=== PATIENT | male | born 1950 | race Caucasian/White ===

== ENCOUNTER 2017-04-15 17:50 | Emergency (ER) | payer MEDICARE, OTHER ==
[~2017-04-15] VITALS: Ht 175.3 cm; Wt 120.2 kg
--- NOTE | 2017-04-15 17:59 | Emergency Room Report ---
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 Clinical Suspician of Infection? Mental Status: Sepsis Risk: Have you (or family members/close friends) recently traveled outside the [place]? If Yes, where/when: Have you had exposure to infectious disease within the past month? TB? Other? Specify: Source patient, RN notes reviewed Exam Limitations no limitations Comment Pt comes to the ED with a cut on the volar aspect of his left 5th finger and he does not remember how it happened He is allergic to tetanus and can not take the shot Cardiac Chest Pain Chest pain indicative of cardiac No ALLERGIES Coded Allergies: tetracycline (04/15/17) History Medical History Surgical Hx Previous Surgery?Y NERVE SURGERY Review of Systems All Other Systems Reviewed and Negative Constitutional see HPI Skin see HPI Physical Exam Vital Signs Vital Signs Date Time Temp Pulse Resp B/P Pulse O2 O2 Flow FiO2 Ox Delivery Rate 04/15 1756 98.4 90 16 162/97 95 General Appearance normal appearance, WD/WN, no apparent distress Respiratory Status No: respiratory distress. Cardiovascular normal exam, regular rate/rhythm Neurologic alert, clip and hanger attacher II-XII nml as tested, normal exam Skin Laceration on the left 5th finger distal phalanx that is a flap, is irregular and about 3 cm in length Medical Decision Making LABS/Meds/Orders Pt receiving controlled substance in ED? No Results/Orders Current Medication Orders Sig/Batsheva Start time Last Medication Dose Route Stop Time Status Admin Diphtheria/Pertussis/ 0.5 ML ONCE ONE 04/15 1845 DC 04/15 Tetanus Vacc IM 04/15 1846 190 Diphtheria/Pertussis/ 0 .STK-MED ONE 04/15 1844 DC Tetanus Vacc IM Lidocaine HCl 0 .STK-MED ONE 04/15 1830 DC .ROUTE Bacitracin 0 .STK-MED ONE 04/15 1829 DC TP Procedures Laceration/Wound Repair Laceration/Wound Repair Risks/benefits discussed with pt/guardian? No Tetanus status Allergic to tetanus Wound Location finger(s) Wound Length (cm) 3 Wound's Depth, Shape sucutaneous tissue Wound Explored clean Risk of retained FB explained to pt/guardian? No Irrigated w/ Saline (ccs) 25 Wound Prep Hibiclens, Saline Anesthesia 1% Lidocaine Volume Anesthetic (ccs) 3 Wound Debrided none Wound Repaired With sutures Suture Size/Type 5:0, Ethilon Layer Closure No Total Number Sutures 7 Sterile Dressing Applied Yes Splint Applied No Departure Departure Time of Disposition 1906 Disposition DC Home or Self Care(routine) Clinical Impression Primary Impression: Laceration of left hand without complication, including fingers Qualifiers: Encounter type: initial encounter Qualified Code: S61.412A - Laceration without foreign body of left hand, initial encounter Condition STABLE Patient Instructions DI for Laceration Repair, Laceration Repair Additional Instructions elevate higher than heart for 24 hours. Change dressing daily and keep stitches dry for 2 days. Followup in 9 to 10 days to remove stitches. Discharge Counseling Counseled pt/family regarding diagnosis, medications/RX, home care, follow up needs Prescriptions Current Visit Scripts Cephalexin (Keflex 500MG) 500 MG PO QID #40 CAP MUPIROCIN 2% (Bactroban Oint) 1 GM TP DAILY #1 TUBE ED Critical Care Critical Care No If Critical Care minutes are documented, the time involved in the performance of seperately reportable procedures was not counted toward critical care time documented. I directly delivered medical care to this critically ill and/or injured patient. Timely evaluation and treatment was necessary to address the significant organ system(s) dysfunction present in this patient. at 1911
[2017-04-15] MEDS ORDERED: KEFLEX500 M1 PO (19:10)
[2017-04-15] MEDS ORDERED: BACTROBAN2% TP (19:11)
[2017-04-15 19:25] VITALS: BP 154/88
== END 2017-04-15 19:26 | disposition home or self-care (01) ==
LOC: ER 17:50
PROC: 0HQGXZZ Repair Left Hand Skin, External Approach (ICD-10-PCS; principal; 2017-04-15)
DX: S61.412A Laceration without foreign body of left hand, initial encounter (principal); Z23 Encounter for immunization; W45.8XXA Other foreign body or object entering through skin, initial encounter; Y92.009 Unspecified place in unspecified non-institutional (private) residence as the place of occurrence of the external cause

== ENCOUNTER 2017-04-24 13:25 | Emergency (ER) | payer MEDICARE, OTHER ==
[~2017-04-24 13:25] MED LIST: BACTROBAN2% TP; KEFLEX500 M1 PO
--- OUTSIDE RECORDS SUMMARY | 2017-04-24 13:28 | External Medical Summary Rpt | CCD ---
Demographics Preferred Language Citizen Of [place] Marital Status Unknown Congregational Affiliation Unknown Race Unknown Ethnic Group Unknown Author Author , LANETTE GAMA Address Unknown Phone [email or web address] Immunization Name Date Rout CVX Reac Dose Comm Prov Is Faci e tion ent ider Refu lity Give sed n Hep 11-2 43 999 Hist H109 No H109 B, 9-20 oric adul 01 al t Info rmat ion - Sour ce Unsp ecif ied Hep 05-0 43 999 Hist H109 No H109 B, 4-20 oric adul 01 al t Info rmat ion - Sour ce Unsp ecif ied Hep 03-1 43 999 Hist H109 No H109 B, 5-20 oric adul 01 al t Info rmat ion - Sour ce Unsp ecif ied
--- OUTSIDE RECORDS SUMMARY | 2017-04-24 13:28 | External Medical Summary Rpt | CCD ---
Author Author [employer] Organization [employer] Address Unknown Phone Unavailable Purpose Continuity of Care Document - through 2016
--- OUTSIDE RECORDS SUMMARY | 2017-04-24 13:28 | External Medical Summary Rpt | CCD ---
Author Author , LANETTE GAMA Address Unknown Phone [email or web address] Purpose Continuity of Care Document - through 2016 Problems Code Diagnosis DOS Provider Status S61.412A LACERATION WITHOUT FOREIGN BODY OF LEFT HAND, INIT ENCNTR
--- OUTSIDE RECORDS SUMMARY | 2017-04-24 13:28 | External Medical Summary Rpt ---
Author Author LANETTE Bello, LANETTE Bello Organization [employer] Address Unknown Phone Unavailable
--- OUTSIDE RECORDS SUMMARY | 2017-04-24 13:28 | External Medical Summary Rpt | CCD ---
Demographics Preferred Language Portuguese Marital Status Unknown [employer] Affiliation Unknown Race Unknown Ethnic Group Unknown Author Author , LANETTE GAMA Address Unknown Phone [email or web address] Immunization Name Date Rout CVX Reac Dose [...]
--- OUTSIDE RECORDS SUMMARY | 2017-04-24 13:28 | External Medical Summary Rpt | CCD ---
Author Author , LANETTE GAMA Address Unknown Phone Purpose Continuity of Care Document - through 2016 Problems Code Diagnosis DOS Provider Status S61.412A LACERATION WITHOUT FOREIGN BODY OF LEFT HAND, INIT ENCNTR
[2017-04-24 13:48] VITALS: BP 158/65
== END 2017-04-24 13:49 | disposition home or self-care (01) ==
LOC: UTC 13:25
DX: S61.412D Laceration without foreign body of left hand, subsequent encounter (principal); Z48.02 Encounter for removal of sutures